=== PATIENT | female | born 1965 | race Caucasian/White ===

== ENCOUNTER 2021-03-22 19:54 | Observation (INO) | payer BC, SELFPAY ==
--- NOTE | ~2021-03-22 | CT_ITS ---
EXAMINATION: CT abdomen pelvis wo con DATE: 03/22/2021 23:41 INDICATION: Right flank pain. Right lower quadrant abdominal pain. TECHNIQUE: Computed tomography (CT) of the abdomen and pelvis was performed without intravenous contr ast. Automated exposure control and iterative reconstruction technique were employed. The dose-length product was 1202.78 mGy-cm. COMPARISON: None. FINDINGS: The visualized portions of the lung bases demonstrate mild atelectasis. No pleural effusion . The heart size is normal. No pericardial effusion. Personally visualized are bilateral breast impla nts. There is a small sliding hiatal hernia. The liver is normal. The gallbladder is distended. The s pleen and pancreas are normal. There is a 14 mm low-attenuation mass in right adrenal gland, consiste nt with an adenoma. There is a 12 mm mass in left adrenal gland measuring low attenuation, consistent with an adenoma. There is cortical thinning of right kidney. Left kidney is normal. There is no urol ithiasis. There are multiple uterine fibroids measuring up to 5.2 cm. There are no dilated loops of b owel. The appendix is normal. There are no pathologically enlarged lymph nodes. There is no free intr aperitoneal fluid. There is mild thoracic spondylosis. There is mild chronic anterior wedging of mult iple lower thoracic vertebral bodies. IMPRESSION: 1. Gallbladder distention, which may be secondary to fasting or acute cholecystitis. Correlate with p hysical exam. 2. Uterine fibroids. 3. Small sliding hiatal hernia. Reviewed, dictated and finalized at location A. IMPRESSION: 1. Gallbladder distention, which may be secondary to fasting or acute cholecyst itis. Correlate with physical exam. 2. Uterine fibroids. 3. Small sliding hiatal hernia.
--- NOTE | ~2021-03-22 | US_ITS ---
EXAMINATION: US pelvic complete w TV EXAM DATE: 03/23/2021 16:15 INDICATION: RLQ pain, LLQ pain RLQ PAIN, LLQ PAIN. TECHNIQUE: Pelvic transabdominal and transvaginal sonogram was performed. There are multiple graysca le and Doppler images available for interpretation. Correlation is made to CT abdomen pelvis from yes terday. FINDINGS: Uterus measures 9.1 x 5.0 x 5.7 cm, with multiple fibroids which is obscuring the endometr ial stripe. 1 fibroid measured at 5.8 cm. Left ovary has a complex cystic measuring about 4 cm, fishn et appearance consistent with hemorrhagic cyst. Color flow identified within the parenchyma, no left ovarian torsion suspected. Right ovary not specifically identified. IMPRESSION: 1. Multiple fibroids limiting evaluation of ovaries. 2. Left ovary small complex cystic lesion most likely hemorrhagic cyst. 3. Right ovary not identified. Reviewed, dictated and finalized at location B.
--- NOTE | ~2021-03-22 | US_ITS ---
EXAMINATION: US abdomen limited EXAM DATE: 03/23/2021 10:11 INDICATION: RLQ abd pain, gallbladder distention . TECHNIQUE: Multiple grayscale and Doppler images of the abdomen right upper quadrant were obtained (b y a technologist who performed the scan) and subsequently reviewed. Correlation is made to CT from . FINDINGS: The pancreatic head and body are normal in appearance. The pancreatic tail is not visualized. The l iver has normal echogenicity and contour. There are no focal liver lesions identified. There is no evidence of intrahepatic biliary duct dilation. Portal venous flow was seen in the hepatopedal, nor mal direction and has normal Doppler waveform. No right-sided hydronephrosis. Region of right renal cortical scarring. Common bile duct measures 4 mm, which is normal. The gallbladder wall is normal in thickness, with mo derate amount of distention. No sonographic evidence of pericholecystic fluid. There is no cholelit hiases. Technologist performing exam reports patient did not demonstrate sonographic Mak's sign. Please note that this sign is less reliable in patients who have received pain medication. IMPRESSION: 1. Sonographically normal gallbladder. 2. Small region right renal cortical scarring. Reviewed, dictated and finalized at location B.
[2021-03-22 20:22] VITALS: BP 147/76; PULSE 116; RESP 18; TEMP 36.6; O2SAT 99
[2021-03-22 21:17] LABS: Add Urine Microscopic? YES; Appearance Urine Clear (Clear); Bilirubin Urine Negative (Negative); Blood Urine Negative (Negative); Color Urine Yellow (Yellow); Glucose Urine UA Negative (Negative); Ketones Urine Negative (Negative); Leukocyte Esterase Ur Negative LEU/UL (Negative); Nitrate Urine Negative (Negative); Protein Urine Negative (Negative); Specific Grav Ur 1.017 (1.001-1.035); Squamous Epithelial Cell Urine Few /hpf (Few)
--- NOTE | 2021-03-22 21:26 | PC.NURSE ---
Multiple attempts to draw blood on patient, no success at this time.
[2021-03-22 23:31] LABS: Basophils Percent Auto 0.2 % (0.2-1.2); Eosinophils Percent Auto 0.1 % (0-4.4); Hematocrit 40.3 % (37.0-47.0); Hemoglobin 13.1 g/dL (12.0-15.0); Immature Granulocyte Absolute 0.13 K/mm3 (0.00-0.031); Immature Granulocyte Percent A 0.7 % (0-0.5); Lymphocytes Absolute Auto 1.72 K/mm3 (0.9-3.2); Lymphocytes Percent Auto 9.2 % (18.3-44.2); Mean Corpuscular HGB Conc 32.5 g/dl (32-36); Mean Corpuscular Hemoglobin 29.2 pg (26-34); Mean Corpuscular Volume 89.8 fl (80-100); Mean Platelet Volume 10.3 fl (7.4-10.4); Monocytes Absolute Auto 1.2 K/mm3 (0.1-0.6); Monocytes Percent Auto 6.5 % (2.6-8.5); Neutrophils Absolute Auto 15.6 K/mm3 (1.3-6.7); Neutrophils Percent Auto 83.3 % (45.5-73.1); Platelet Count Result 304 k/mm3 (150-375); Red Blood Count 4.49 M/mm3 (4.2-5.4); Red Cell Distribution Width 13.4 % (11.5-14.5); White Blood Count 18.7 K/mm3 (4.5-10.0)
[2021-03-22 23:41] LABS: Alanine Aminotransferase 33 U/L (4-35); Albumin Level 4.7 g/dL (3.5-5.1); Alkaline Phosphatase 99 U/L (38-126); Anion Gap 9 mmol/L (8-16); Aspartate Amino Transferase 34 U/L (14-36); Bilirubin,Total 0.9 mg/dL (0.2-1.3); Blood Urea Nitrogen 11 mg/dL (7-17); Calcium 9.1 mg/dL (8.4-10.2); Carbon Dioxide 28 mmol/L (22-30); Chloride 96 mmol/L (98-107); Estimated CRCL calculation 105 ml/min; Estimated Glomerular Filt Rate > 60; Glucose 132 mg/dL (65-110); Lipase 28 U/L (23-300); Potassium 3.4 mmol/L (3.4-5.0); Sodium 133 mmol/L (137-145)
--- NOTE | 2021-03-22 23:42 | ED.ABDPAIN ---
HPI - Abdominal Pain General Chief Complaint: Abdominal Pain Stated Complaint: kidney stones Time Seen by Provider: 03/22/21 23:13 Source: patient Mode of arrival: ambulatory Limitations: no limitations History of Present Illness HPI narrative: Patient is a 55-year-old female complaining of right flank pain rating to her right lower quadrant, 8 out of 10, sharp, accompanied by nausea and dysuria that started 2 days ago. Patient denies any chest pain, shortness of breath, vomiting, diarrhea, fever, or chills. Related Data Allergies Allergy/AdvReac Type Severity Reaction Status Date / Time No Known Allergies Allergy Unverified 06/26/17 07:47 Review of Systems Review of Systems: All systems reviewed & are unremarkable except as noted in HPI and below Constitutional: Constitutional: Denies body ache(s), Denies chills, Denies excessive sweating, Denies fatigue, Denies fever(s), Denies headache(s), Denies lethargy, Denies malaise, Denies weakness and Denies weight loss Eyes: Eyes: Denies blurry vision, Denies change in vision and Denies loss of vision ENT: Denies dizziness, Denies ear discharge, Denies headache(s), Denies lip swelling, Denies epistaxis, Denies nasal congestion, Denies neck pain, Denies throat swelling and Denies tongue swelling Cardiovascular: Cardiovascular: Denies chest pain, Denies chest pain at rest, Denies chest pain with activity, Denies diaphoresis, Denies rapid heart rate, Denies edema, Denies irregular heart rhythm, Denies lightheadedness, Denies palpitations, Denies dyspnea and Denies dyspnea on exertion Respiratory: Respiratory: Denies chest congestion, Denies cough, Denies hemoptysis, Denies dyspnea and Denies dyspnea on exertion Gastrointestinal: Gastrointestinal: Denies abdominal pain, Denies melena, Denies hematochezia, Denies diarrhea, Denies nausea, Denies vomiting and Denies hematemesis Musculoskeletal: Musculoskeletal: Denies abnormal gait, Denies deformity, Denies joint swelling, Denies limited range of motion, Denies neck pain and Denies numbness Neurologic: Denies Abnormal speech present, Denies abnormal gait, Denies confusion, Denies dizziness, Denies headache(s), Denies focal weakness, Denies loss of vision, Denies numbness, Denies Other visual disturbances, Denies Sensory deficit (Neuro) and Denies weakness Psychiatric: Psychiatric: Denies confusion, Denies depression, Denies auditory hallucinations, Denies homicidal ideation and Denies suicidal ideation Endocrine: Endocrine: Denies cold intolerance, Denies excessive sweating, Denies fatigue, Denies heat intolerance and Denies palpitations Hematologic/Lymphatic: Hematologic/Lymphatic: Denies easy bleeding and Denies easy bruising Allergic/Immunologic: Allergic/Immunologic: Denies lip swelling, Denies throat swelling and Denies tongue swelling PMFSH Comments Past medical history: Hyperlipidemia Family history: Hypertension Social history: Non-smoker no EtOH or drug use Exam Const: General: cooperative, healthy appearing, comfortable, no acute distress, well developed, alert and awake; No confusion Orientation/consciousness: oriented to person, oriented to place, oriented to time, patient oriented x3 and No confusion Limitations: no limitations HENMT: Head: normal to inspection, normocephalic and atraumatic Ears: hearing grossly normal bilaterally, TM normal on the right and TM normal on the left General nose exam: Normal external nose present, Normal nares present and No nasal discharge present Face and sinus: normal facial exam Mouth: Yes Normal oral and palatal mucosa present, Yes lip normal, Yes tongue normal and Yes oropharynx normal Throat: posterior oropharynx normal, tonsils normal and uvula midline Eyes: General: appearance normal, both eyes and all related structures Pupils: Equal, round and reactive pupils present EOM: EOMs intact bilaterally Neck: Neck: normal visual inspection, full ROM, no lymphadenopathy and no meningeal si
[2021-03-22] MEDS: SODIUM CHLORIDE 0.9% IV 1,000 ML 999 ML IV CONT (23:54)
[2021-03-22] MEDS: KETOROLAC 30 MG/ML VIAL (*BKC) IV PUSH (23:56)
[2021-03-22] MEDS: PROMETHAZINE HCL 25 MG/ML AMPUL 12.5 MG IV PUSH (23:56)
[2021-03-23] MEDS: LACTATED RINGERS 1,000 ML 125 ML IV CONT ×3 (00:47→21:56)
[2021-03-23 00:57] VITALS: BP 111/68; PULSE 95; RESP 16; O2SAT 98
--- NOTE | 2021-03-23 01:35 | ADMGEN ---
This patient, Yen Rodriguez, was admitted to Medical Room 349-01. Patient/family oriented to hospital policies and general routines including ID bracelet, bed and alarms, visiting hours, pain management, procedures, bathroom and other care routines, personal items, smoking policy, room service/diet, and visiting hours. Information on how to activate the Rapid Response Team has been discussed. Patient/Family are encouraged to report perceived risks to care and to ask questions if they do not understand what they are told or what they should do.
[2021-03-23 01:49] VITALS: BP 107/54; PULSE 95; RESP 18; TEMP 36.1; O2SAT 96
[2021-03-23 01:50] VITALS: BMI 35.6
[2021-03-23 06:15] VITALS: BP 113/57; PULSE 96; RESP 16; TEMP 36.6; O2SAT 97
--- NOTE | 2021-03-23 09:05 | PM.IMHP ---
H&P: HPI History of Present Illness Date/Time: 03/23/21 09:05 Chief Complaint: Right flank and right lower quadrant abdominal pain Narrative: This is a 55-year-old female with a history of hypertension, who presented to the ER from home with complaints of right flank and RLQ abdominal pain. She reports that for more than 6 months she has had intermittent mild right flank pain. This pain comes and goes without any obvious aggravating factors. This does not seem to be aggravated by food. She was concerned this was kidney related, and had seen her PCP about 6 months ago for a flare-up of this pain. She states they checked her urine and this was normal, so they suspected she had passed a kidney stone. The pain continued to come and go spontaneously for the next few months. Last week, she had been in [place] and began feeling poorly while on vacation with fatigue and lack of appetite. She had been eating fried foods and drinking more soda, so she had attributed her symptoms to diet changes. She also reports being constipated last week, which seems to have improved over the weekend. Two nights ago she developed right flank pain that seemed to radiate to the right lower quadrant. This pain continued to worsen, and has now localized to primarily being in the RLQ today. She developed nausea and chills yesterday. Symptoms did not improve after having a bowel movement. Due to the pain, she decided to present to the ER for further evaluation. CT scan of the abdomen and pelvis showed gallbladder distention and uterine fibroids measuring up to as large as 5.2 cm. No cholelithiasis or other findings of cholecystitis. Labs showed a white blood cell count of 18,700, normal LFTs, and normal lipase. Urinalysis did not suggest urinary tract infection. Our service was consulted by the ER physician and she was admitted for further evaluation of abdominal pain and possible acute cholecystitis. The patient is now seen on the medical floor. She reports mostly all RLQ abdominal pain that has improved some, but is still constant. Aggravated by movement and walking. She has not seen a Food Service Aide in years. She is postmenopausal and has not had any recent vaginal bleeding. She reports RLQ abdominal pain with voiding, but would not consider it dysuria. This also occurs when straining with a bowel movement. Denies hematuria, frequency, or urgency. No other complaints at this time. Review of Systems Review of Systems: All systems reviewed & are unremarkable except as noted in HPI and below Constitutional: Constitutional: Reports as per HPI, Reports chills (yesterday), Denies fatigue, Denies fever(s), Denies headache(s), Reports lethargy and Reports poor appetite ENT: Reports system reviewed and no additional complaints, except as documented and Reports Normal hearing present Cardiovascular: Cardiovascular: Reports no additional cardiovascular complaints, Denies chest pain and Denies leg edema Respiratory: Respiratory: Reports no additional respiratory complaints, Denies cough and Denies dyspnea Gastrointestinal: Gastrointestinal: Reports as per HPI, Reports no additional gastrointestinal complaints, Reports abdominal pain (RLQ, right flank), Denies melena, Reports bloating, Denies hematochezia, Reports constipation (over the past week, last BM yesterday), Denies heartburn, Denies diarrhea, Reports nausea and Denies vomiting Genitourinary: Genitourinary: Denies hematuria, Denies urinary hesitancy, Denies urinary urgency and Reports other (pain in RLQ with straining for BM/urine) Musculoskeletal: Musculoskeletal: Denies abnormal gait and Denies joint swelling Integumentary/Breasts: Skin/Breast: Denies wounds and Denies jaundice Neurologic: Reports system reviewed and no additional complaints, except as documented, Denies focal weakness, Denies numbness and Denies tingling Psychiatric: Psychiatric: Denies anxiety and Denies depression PMFSH Past Medical History Medical History (Re
--- NOTE | 2021-03-23 10:23 | WPDANESEPPF ---
Anes - Initial Pre Proc Eval Procedure: Operation Date: 03/23/21 16:30 Proposed Procedures p Laparoscopic Cholecystectomy, Possible Open - Nemesio Jacobs DO Date/Time: 03/23/21 10:23 Surgeon: Nemesio Jacobs DO Pre Op Diagnosis: Acute Cholecystitis Patient Data Age: 55 Gender: F Height: 1.68 m Weight: 100 kg Last Vital Signs Temp 36.6 C 03/23/21 06:15 Pulse 96 03/23/21 06:15 Resp 16 03/23/21 06:15 BP 113/57 L 03/23/21 06:15 Pulse Ox 97 03/23/21 06:15 Allergies Allergy/AdvReac Type Severity Reaction Status Date / Time No Known Allergies Allergy Verified 03/23/21 01:42 Home Medications Medication Instructions Recorded Confirmed Type citalopram 20 mg PO HS 03/23/21 03/23/21 History esomeprazole magnesium 20 mg PO DAILY 03/23/21 03/23/21 History olmesartan-hydrochlorothiazide 1 tablet PO DAILY 03/23/21 03/23/21 History oxybutynin chloride 5 mg PO HS 03/23/21 03/23/21 History Laboratory Tests 03/22/21 03/22/21 03/22/21 20:59 23:23 23:23 WBC 18.7 K/mm3 H K/mm3 (4.5-10.0) RBC 4.49 M/mm3 M/mm3 (4.2-5.4) Hgb 13.1 g/dL g/dL (12.0-15.0) Hct 40.3 % % (37.0-47.0) MCV 89.8 fl fl (80-100) MCH 29.2 pg pg (26-34) MCHC 32.5 g/dl g/dl (32-36) RDW 13.4 % % (11.5-14.5) Plt Count 304 k/mm3 k/mm3 (150-375) MPV 10.3 fl fl (7.4-10.4) Immature Gran % (Auto) 0.7 % H % (0-0.5) Neut % (Auto) 83.3 % H % (45.5-73.1) Lymph % (Auto) 9.2 % L % (18.3-44.2) [place] % (Auto) 6.5 % % (2.6-8.5) Eos % (Auto) 0.1 % % (0-4.4) Baso % (Auto) 0.2 % % (0.2-1.2) Lymph # (Auto) 1.72 K/mm3 K/mm3 (0.9-3.2) [place] # (Auto) 1.2 K/mm3 H K/mm3 (0.1-0.6) Eos # (Auto) 0.0 K/mm3 K/mm3 (0-0.3) Baso # (Auto) 0.0 K/mm3 K/mm3 (0.0-0.1) Abs Immat Gran (auto) 0.13 K/mm3 H K/mm3 (0.00-0.031) Absolute Neuts (auto) 15.6 K/mm3 H K/mm3 (1.3-6.7) Absolute Nucleated RBC 0.0 K/mm3 K/mm3 (0.0-0.012) Nucleated RBC % 0.0 % % (0.0-0.2) Sodium 133 mmol/L L mmol/L (137-145) Potassium 3.4 mmol/L mmol/L (3.4-5.0) Chloride 96 mmol/L L mmol/L (98-107) Carbon Dioxide 28 mmol/L mmol/L (22-30) Anion Gap 9 mmol/L mmol/L (8-16) BUN 11 mg/dL mg/dL (7-17) Creatinine 0.60 mg/dL L mg/dL (0.7-1.0) Estim Creat Clear Calc 105 ml/min ml/min Estimated GFR > 60 (59 - ) Glucose 132 mg/dL H mg/dL (65-110) Calcium 9.1 mg/dL mg/dL (8.4-10.2) Total Bilirubin 0.9 mg/dL mg/dL (0.2-1.3) AST 34 U/L U/L (14-36) ALT 33 U/L U/L (4-35) Alkaline Phosphatase 99 U/L U/L (38-126) Total Protein 8.0 g/dL g/dL (6.3-8.2) Albumin 4.7 g/dL g/dL (3.5-5.1) Lipase 28 U/L U/L (23-300) Urine Color Yellow (Yellow) Urine Appearance Clear (Clear) Urine pH 7.0 (5.0-9.0) Ur Specific [place] 1.017 (1.001-1.035) Urine Protein Negative mg/dL mg/dL (Negative) Urine Glucose (UA) Negative mg/dL mg/dL (Negative) Urine Ketones Negative mg/dL mg/dL (Negative) Ur Blood (Man) Negative (Negative) Urine Nitrate Negative (Negative) Urine Bilirubin Negative (Negative) Urine Urobilinogen 4.0 mg/dL H mg/dL (<2.0) Leukocyte Esterase Rfl Negative NAVARRO/UL NAVARRO/UL (Negative) Urine RBC 3-5 /hpf H /hpf (0-2) Urine WBC 4-6 /hpf H /hpf Ur Squamous Epith Cells Few /hpf /hpf (Few) [facility] Past Medical History Medical History (Updated 03/23/21 @ 10:24 by Sharath Dean DO) Anxiety GERD (gastroesophageal reflux disease) History of paroxysmal
[2021-03-23 14:45] VITALS: BP 148/74; PULSE 96; RESP 20; TEMP 36.1; O2SAT 98
[2021-03-23] MEDS: OXYBUTYNIN CHLORIDE 5 MG TABLET PO (21:56)
[2021-03-23 22:06] VITALS: BP 143/69; PULSE 93; RESP 16; TEMP 36.4; O2SAT 95
[2021-03-24 05:38] VITALS: BP 121/69; PULSE 82; RESP 18; TEMP 35.8; O2SAT 97
[2021-03-24 06:29] LABS: Basophils Percent Auto 0.3 % (0.2-1.2); Eosinophils Absolute Auto 0.1 K/mm3 (0-0.3); Eosinophils Percent Auto 0.5 % (0-4.4); Hematocrit 38.1 % (37.0-47.0); Hemoglobin 12.3 g/dL (12.0-15.0); Immature Granulocyte Absolute 0.08 K/mm3 (0.00-0.031); Immature Granulocyte Percent A 0.6 % (0-0.5); Lymphocytes Absolute Auto 1.54 K/mm3 (0.9-3.2); Lymphocytes Percent Auto 11.1 % (18.3-44.2); Mean Corpuscular HGB Conc 32.3 g/dl (32-36); Mean Corpuscular Hemoglobin 29.5 pg (26-34); Mean Corpuscular Volume 91.4 fl (80-100); Mean Platelet Volume 10.3 fl (7.4-10.4); Monocytes Absolute Auto 0.7 K/mm3 (0.1-0.6); Neutrophils Absolute Auto 11.4 K/mm3 (1.3-6.7); Neutrophils Percent Auto 82.5 % (45.5-73.1); Platelet Count Result 273 k/mm3 (150-375); Red Blood Count 4.17 M/mm3 (4.2-5.4); Red Cell Distribution Width 13.3 % (11.5-14.5); White Blood Count 13.9 K/mm3 (4.5-10.0)
[2021-03-24 06:54] LABS: Alanine Aminotransferase 23 U/L (4-35); Albumin Level 3.9 g/dL (3.5-5.1); Alkaline Phosphatase 94 U/L (38-126); Anion Gap 13 mmol/L (8-16); Aspartate Amino Transferase 38 U/L (14-36); Bilirubin,Total 0.9 mg/dL (0.2-1.3); Blood Urea Nitrogen 11 mg/dL (7-17); Calcium 8.5 mg/dL (8.4-10.2); Carbon Dioxide 22 mmol/L (22-30); Chloride 102 mmol/L (98-107); Estimated CRCL calculation 105 ml/min; Estimated Glomerular Filt Rate > 60; Glucose 136 mg/dL (65-110); Potassium 3.3 mmol/L (3.4-5.0); Sodium 137 mmol/L (137-145)
[2021-03-24] MEDS: PANTOPRAZOLE 40 MG TABLET PO (09:28)
[2021-03-24] MEDS: OLMESARTAN MEDOXOMIL 20 MG TABLET 40 MG PO (09:28)
[2021-03-24] MEDS: hydroCHLOROthiazide 12.5 MG CAPSULE PO (09:28)
--- NOTE | 2021-03-24 12:01 | PM.DS ---
DS: Admitting Diagnosis Admitting Diagnosis Lower abdominal pain, right flank pain, abnormal CT abdomen DS: Discharge Diagnosis Discharge Diagnosis (1) Lower abdominal pain: Code(s): R10.30 - Lower abdominal pain, unspecified Status: Acute (2) Abnormal CT of the abdomen: Code(s): R93.5 - Abnormal findings on diagnostic imaging of other abdominal regions, including retroperitoneum Status: Acute (3) Leukocytosis: Qualifiers: Leukocytosis type: unspecified Qualified Code(s): D72.829 - Elevated white blood cell count, unspecified Code(s): D72.829 - Elevated white blood cell count, unspecified Status: Acute DS: Summary Hospital Course Reason for hospitalization: abdominal pain, possible cholecystitis Hospital Course: this is a 55-year-old woman who presented to the emergency department on 03/22/2021 with lower abdominal pain and right flank pain. Her pain appeared to be more predominant in the right lower and slightly right upper regions. She had a high white blood count at 18.7 but the rest of her labs were fairly unremarkable. CT abdomen and pelvis without contrast was obtained and this showed gallbladder distension and uterine fibroids. She was admitted for possible cholecystitis. Her urinalysis was normal and she denied any vaginal discharge. On 03/23/2021 a gallbladder ultrasound was obtained which was normal. She also did not seem to have much more upper abdominal pain and was mostly complaining of bilateral groin and lower abdominal pain. A pelvic ultrasound was also obtained which was showing multiple uterine fibroids and a complex left ovarian cystic lesion likely a hemorrhagic cyst. Patient was continued on broad-spectrum IV antibiotics for possible abdominal sources of infection. She was kept on a clear liquid diet initially and pain was continuing to improve. Discussions were made with the patient about possibly getting DEHYDROGENATION CONVERTER HELPER consult for further evaluation or possibly getting a repeat CT with IV contrast. Since she was feeling better, she wanted to try going home and following up with her PCP for further evaluation. She was discharged on 03/24/2021 with prescriptions for Augmentin and Flagyl. Status at Discharge Functional status at discharge: independent ambulation Overall status at discharge: patient is progressing back to baseline Time Spent with Patient Time attestation: Total time spent providing and/or coordinating discharge services: Time spent: Less than 30 minutes Exam Const: General: no acute distress Orientation/consciousness: patient oriented x3 Limitations: no limitations Resp: Effort & Inspection: normal respiratory effort Auscultation: clear to auscultation bilaterally Cardio: Rate: regular rate Rhythm: regular rhythm Heart sounds: S1 normal heart sound present and S2 normal heart sound present GI: Inspection: normal to inspection and non-distended GI Palp: Yes Tenderness to palpation present (GI) ( Slight LLQ and RLQ tenderness to palpation), No Guarding due to palpation present (GI) and No Rebound tenderness present Auscultation: normal bowel sounds Rectal Exam: deferred : General: Yes deferred DS: Data Data Completed and Pending Labs on day of discharge: Labs from last 24 hours 03/24/21 03/24/21 06:09 06:09 WBC 13.9 H RBC 4.17 L Hgb 12.3 Hct 38.1 MCV 91.4 MCH 29.5 MCHC 32.3 RDW 13.3 Plt Count 273 MPV 10.3 Immature Gran % (Auto) 0.6 H Neut % (Auto) 82.5 H Lymph % (Auto) 11.1 L [place] % (Auto) 5.0 Eos % (Auto) 0.5 Baso % (Auto) 0.3 Lymph # (Auto) 1.54 [place] # (Auto) 0.7 H Eos # (Auto) 0.1 Baso # (Auto) 0.0 Abs Immat Gran (auto) 0.08 H Absolute Neuts (auto) 11.4 H Absolute Nucleated RBC 0.0 Nucleated RBC % 0.0 Sodium 137 Potassium 3.3 L Chloride 102 Carbon Dioxide 22 Anion Gap 13 BUN 11 Creatinine 0.60 L Estim Creat Clear Calc 105 Estimated GFR > 60 Gluco
== END 2021-03-24 14:34 | disposition home or self-care (01) ==
LOC: ANHED 03-23 00:19 → ANH3MED 03-23 00:34
PROVIDERS: Nurse Practitioner Family; Admitting Provider Surgery; Emergency Provider Emergency Medicine; PCP Family Medicine; Visit Provider Surgery
DX: D25.9 Leiomyoma of uterus, unspecified (principal); R93.5 Abnormal findings on diagnostic imaging of other abdominal regions, including retroperitoneum; D72.829 Elevated white blood cell count, unspecified; R10.30 Lower abdominal pain, unspecified
CPT/HCPCS: 36415; 74176; 76705; 76830; 76856; 80053; 81001; 81025; 83690; 85025; 96361; 96365; 96366; 96367; 96375; 96376; 99285; A9270; G0378; J0131; J1885; J2543; J2550; J7030; J7120